=== PATIENT | male | born 1935 | race Caucasian/White ===

== ENCOUNTER 2020-09-05 12:47 | Inpatient (IN) | payer MEDICARE ==
[~2020-09-05] VITALS: Ht 165.1 cm; Wt 65.8 kg
[~2020-09-05 12:47] MED LIST: ASPI-1497 PO; CYAN50008 MT; METF-414 PO; MULT-1146 PO; [UNRECOGNIZED DRUG - CODE] MT
[2020-09-05] MEDS ORDERED: SODIUM CHLORIDE 0.9% 500 ML IV ONE (13:15)
[2020-09-05 14:01] LABS: CHLORIDE 99 mEq/L (98-107)
[2020-09-05 15:23] LABS: HEMOGLOBIN. 11.3 g/dL (14.0-18.0); MEAN CORPUSCULAR HEMOGLOBIN 31.5 pg (28.0-32.0); MEAN CORPUSCULAR VOLUME 89.1 fL (80.0-94.0); MEAN PLATELET VOLUME 7.2 fl (7.4-10.4); PLATELET 225 x1000/uL (130-400); RED BLOOD CELL COUNT 3.59 mill/uL (4.7-6.1); RED CELL DISTRIBUTION WIDTH 13.4 % (11.6-14.6)
[2020-09-05 17:09] LABS: CLARITY URINE CLEAR (CLEAR); COLOR URINE YELLOW (YELLOW); KETONES URINE 1+ (NEGATIVE); LEUKOCYTE ESTERASE URINE NEGATIVE (NEGATIVE); NITRITE URINE NEGATIVE (NEGATIVE); OCCULT BLOOD URINE 2+ (NEGATIVE); PROTEIN URINE 1+ (NEGATIVE); SPECIFIC GRAVITY URINE 1.023 (1.005-1.030)
[2020-09-05 17:25] LABS: PLATELET ESTIMATE NORMAL
[2020-09-05] MEDS ORDERED: SODIUM CHLORIDE 0.9% 1,800 ML IV ONE (21:45)
[2020-09-05] MEDS ORDERED: CEFTRIAXONE 1 G PREMIX 50 ML IV NR (22:00)
[2020-09-06] VITALS (7 sets, daily range): BP systolic 90–124; BP diastolic 43–67
[2020-09-06] MEDS ORDERED: DEXTROSE 50% WATER 50ML SYRINGE IV PRN (04:00)
[2020-09-06] MEDS ORDERED: BLOOD SUGAR DIAGNOSTIC STRIP TEST SCH (05:26)
[2020-09-06] MEDS: INSULIN LISPRO 100 UNITS/ML SUBCUT SCH ×4 (06:03→21:32)
[2020-09-06] MEDS: BLOOD SUGAR DIAGNOSTIC STRIP TEST SCH ×4 (06:03→21:16)
[2020-09-06] MEDS: METFORMIN HCL 500MG TABLET PO SCH ×2 (07:12→17:38)
[2020-09-06] MEDS ORDERED: LEVOFLOXACIN 250MG PREMIX 50 ML IV SCH (08:00)
[2020-09-06] MEDS: AMLODIPINE 10MG TABLET PO SCH (08:36)
[2020-09-06] MEDS: ACETAMINOPHEN 325MG TABLET PO PRN (08:37)
[2020-09-06] MEDS: ENOXAPARIN 40MG/0.4ML SYR SUBCUT SCH (08:37)
[2020-09-06] MEDS ORDERED: LEVOFLOXACIN 500MG PREMIX 100 ML IV SCH (09:00)
[2020-09-06] MEDS ORDERED: ONDANSETRON HCL 4MG/2ML INJ IV PRN (11:15)
[2020-09-06 11:29] LABS: BASOPHILS % 0.1 % (0.0-2.0); HEMATOCRIT. 33.2 % (42.0-52.0); HEMOGLOBIN. 11.7 g/dL (14.0-18.0); LYMPHOCYTES % 8.6 % (20.0-50.0); MEAN CORPUSCULAR HEMOGLOBIN 31.8 pg (28.0-32.0); MEAN CORPUSCULAR VOLUME 90.4 fL (80.0-94.0); MEAN PLATELET VOLUME 8.3 fl (7.4-10.4); MONOCYTES % 3.7 % (2.0-8.0); NEUTROPHILS % 87.6 % (40.0-76.0); PLATELET 210 x1000/uL (130-400); RED BLOOD CELL COUNT 3.67 mill/uL (4.7-6.1); RED CELL DISTRIBUTION WIDTH 13.6 % (11.6-14.6)
[2020-09-06] MEDS: CEFEPIME 1,000 MG in DEXTROSE 5% WATER 50 ML IV SCH ×2 (17:38→23:38)
[2020-09-07] VITALS: BP 119/59
[2020-09-07 04:00] VITALS: BP 126/64
[2020-09-07] MEDS: METFORMIN HCL 500MG TABLET PO SCH ×2 (07:03→17:31)
[2020-09-07] MEDS: BLOOD SUGAR DIAGNOSTIC STRIP TEST SCH ×4 (07:03→20:56)
[2020-09-07] MEDS: INSULIN LISPRO 100 UNITS/ML SUBCUT SCH ×4 (07:04→22:45)
[2020-09-07 07:51] LABS: BASOPHILS % 0.4 % (0.0-2.0); EOSINOPHILS % 1.2 % (0.0-5.0); HEMOGLOBIN. 11.1 g/dL (14.0-18.0); LYMPHOCYTES % 8.6 % (20.0-50.0); MEAN CORPUSCULAR HEMOGLOBIN 31.9 pg (28.0-32.0); MEAN CORPUSCULAR VOLUME 88.8 fL (80.0-94.0); MEAN PLATELET VOLUME 7.9 fl (7.4-10.4); MONOCYTES % 4.4 % (2.0-8.0); NEUTROPHILS % 85.4 % (40.0-76.0); PLATELET 208 x1000/uL (130-400); RED BLOOD CELL COUNT 3.49 mill/uL (4.7-6.1); RED CELL DISTRIBUTION WIDTH 13.3 % (11.6-14.6)
[2020-09-07 08:00] VITALS: BP 128/56
[2020-09-07 08:03] LABS: CHLORIDE 100 mEq/L (98-107)
[2020-09-07] MEDS: CEFEPIME 1,000 MG in DEXTROSE 5% WATER 50 ML IV SCH ×3 (08:43→23:10)
[2020-09-07] MEDS: AMLODIPINE 10MG TABLET PO SCH (08:43)
[2020-09-07] MEDS: ACETAMINOPHEN 325MG TABLET PO PRN (08:43)
[2020-09-07] MEDS: ENOXAPARIN 40MG/0.4ML SYR SUBCUT SCH (08:43)
[2020-09-07 12:00] VITALS: BP 110/54
[2020-09-07 16:00] VITALS: BP 126/60
[2020-09-07 20:00] VITALS: BP 115/60
[2020-09-08] VITALS: BP 135/66
[2020-09-08 04:00] VITALS: BP 123/57
[2020-09-08] MEDS: BLOOD SUGAR DIAGNOSTIC STRIP TEST SCH ×2 (06:28→11:40)
[2020-09-08] MEDS: INSULIN LISPRO 100 UNITS/ML SUBCUT SCH (06:35)
[2020-09-08] MEDS: METFORMIN HCL 500MG TABLET PO SCH (06:35)
[2020-09-08 08:00] VITALS: BP 120/55
[2020-09-08] MEDS: AMLODIPINE 10MG TABLET PO SCH (08:15)
[2020-09-08] MEDS: CEFEPIME 1,000 MG in DEXTROSE 5% WATER 50 ML IV SCH (08:16)
[2020-09-08] MEDS: ENOXAPARIN 40MG/0.4ML SYR SUBCUT SCH (08:16)
[2020-09-08] MEDS ORDERED: SULF1TAB48 MT (11:38)
[2020-09-08 11:39] VITALS: BP 122/53
[2020-09-08 12:00] VITALS: BP 122/53
== END 2020-09-08 14:05 | disposition home or self-care (01) | DRG 872 ==
LOC: ER 12:47 → 5WST 22:22 → ENRESERV 23:06
PROVIDERS: ADMIT Internal Medicine; ATTEND Internal Medicine
DX: A41.9 Sepsis, unspecified organism (principal); E87.1 Hypo-osmolality and hyponatremia; D64.9 Anemia, unspecified; E11.65 Type 2 diabetes mellitus with hyperglycemia; E86.0 Dehydration; I10 Essential (primary) hypertension; J44.9 Chronic obstructive pulmonary disease, unspecified; J40 Bronchitis, not specified as acute or chronic; R26.2 Difficulty in walking, not elsewhere classified
CPT/HCPCS: 36415; 71045; 80048; 80053; 80061; 81003; 82962; 83036; 83605; 83880; 84145; 84484; 85025; 93005; 97162; 99285; C1893; J0692; J0696; J1650; J1815; J1956; J7040; J7060

== ENCOUNTER 2023-11-06 20:21 | Inpatient (IN) | payer MEDICARE ==
[~2023-11-06] VITALS: Ht 167.6 cm; Wt 65.8 kg
[~2023-11-06 20:21] MED LIST changes: -CYAN50008 MT; +CYAN50009 MT; +SULF1TAB48 MT
[2023-11-06 20:25] VITALS: O2SAT 95
[2023-11-06] MEDS: PIPERACILLIN/TAZO 3.375G/50ML 50 ML IV ONE (20:57)
[2023-11-06] MEDS: SODIUM CHLORIDE 0.9% 1000ML BAG (SEPSIS BOLUS) IV ONE (20:57)
[2023-11-06 21:06] LABS: DIFFERENTIAL COMMENT 1; HEMATOCRIT. 39.6 % (42.0-52.0); MEAN CORPUSCULAR HEMOGLOBIN 30.2 pg (28.0-32.0); MEAN CORPUSCULAR HGB CONC 32.9 g/dL (31.0-37.0); MEAN CORPUSCULAR VOLUME 91.8 fL (80.0-94.0); MEAN PLATELET VOLUME 7.4 fl (7.4-10.4); PLATELET 273 x1000/uL (130-400); RED BLOOD CELL COUNT 4.31 mill/uL (4.7-6.1); RED CELL DISTRIBUTION WIDTH 13.8 % (11.6-14.6); WHITE BLOOD COUNT 17.7 x1000/uL (4.5-11.0)
[2023-11-06 21:14] LABS: CHLORIDE 106 mEq/L (98-107); POTASSIUM 4.5 mEq/L (3.5-5.1); SODIUM 139 mEq/L (136-145)
[2023-11-06 21:15] LABS: CALCIUM 8.9 mg/dL (8.7-10.4); CARBON DIOXIDE 25 mEq/L (21-32)
[2023-11-06 21:16] LABS: PROTHROMBIN TIME 11.1 sec (9.6-11.0)
[2023-11-06 21:16] LABS: BG BASE EXCESS -2.4 mmol/L (-2.0-2.0); BG CARBOXYHEMOGLOBIN 0.6 % (0.5-1.5); BG FRACTION INSPIRED OXYGEN 100; BG HCO3 ACT 23.6 mmol/L (22.0-26.0); BG METHEMOGLOBIN 0.3 % (0.0-1.5); BG OXYHEMOGLOBIN 99.1 % (94.0-97.0); BG PCO2 45.5 mmHg (35.0-45.0); BG PH 7.332 (7.350-7.450); BG PO2 341.7 mmHg (75.0-100.0); BG SAMPLE SITE RIGHT RADIAL; BG TOTAL HEMOGLOBIN 11.9 g/dL (12.0-18.0); BG VENT MODE MASK - NRB
[2023-11-06 21:20] LABS: CREATININE 1.6 mg/dL (0.6-1.3); GLUCOSE 114 mg/dL (70-105); UREA NITROGEN BLOOD 33 mg/dL (9-23)
[2023-11-06 21:22] LABS: ALANINE AMINOTRANSFERASE 11 IU/L (10-49); ALBUMIN 4.2 g/dL (3.2-4.8); ASPARTATE AMINOTRANSFERASE 23 IU/L (<34); BILIRUBIN DIRECT 0.3 mg/dL (<=3.0); BILIRUBIN TOTAL 0.6 mg/dL (0.1-1.0); CREATINE KINASE 251 IU/L (46-171); PROTEIN TOTAL 6.8 g/dL (6.0-8.3)
[2023-11-06 21:26] LABS: ETHANOL BLOOD < 10 mg/dL (<10); TROPONIN I HIGH SENSITIVITY 512 ng/L (3.0-53)
[2023-11-06 21:37] LABS: PLATELET ESTIMATE NORMAL
[2023-11-06] MEDS: VANCOMYCIN 1G PREMIX 200 ML IV ONE (21:42)
[2023-11-06] MEDS: ASPIRIN 300MG SUPP PR ONE (22:18)
[2023-11-06] MEDS: SODIUM CHLORIDE 0.9% 1,000 ML IV ONE (22:41)
[2023-11-06 23:09] LABS: TROPONIN I HIGH SENSITIVITY 513 ng/L (3.0-53)
[2023-11-07] VITALS (9 sets, daily range): BP systolic 98–123; BP diastolic 45–65; PULSE 66–97; RESP 8–16; TEMP 35.94732–36.7516; O2SAT 97–100
[2023-11-07 04:15] LABS: CLARITY URINE CLEAR (CLEAR); COLOR URINE YELLOW (YELLOW); GLUCOSE URINE NEGATIVE (NEGATIVE); KETONES URINE NEGATIVE (NEGATIVE); LEUKOCYTE ESTERASE URINE NEGATIVE (NEGATIVE); NITRITE URINE NEGATIVE (NEGATIVE); OCCULT BLOOD URINE NEGATIVE (NEGATIVE); PROTEIN URINE TRACE (NEGATIVE); SPECIFIC GRAVITY URINE 1.027 (1.005-1.030)
[2023-11-07 04:33] LABS: *AMPHETAMINES SCREEN URINE NEGATIVE (NEGATIVE); *BARBITURATES SCREEN URINE NEGATIVE (NEGATIVE); *BENZODIAZEPINES SCREEN URINE PRESUMPTIVE POSITIVE (NEGATIVE); *COCAINE SCREEN URINE NEGATIVE (NEGATIVE); CANNABINOID URINE SCREEN NEGATIVE (NEGATIVE); ECSTASY MDMA SCREEN URINE NEGATIVE (NEGATIVE); METHADONE URINE SCREEN NEGATIVE (NEGATIVE); OPIATES URINE SCREEN PRESUMPTIVE POSITIVE (NEGATIVE); PHENCYCLIDINE URINE SCREEN NEGATIVE (NEGATIVE)
[2023-11-07] MEDS ORDERED: NITROGLYCERIN 0.4MG TABLET SL SL PRN (06:00)
[2023-11-07] MEDS ORDERED: DOCUSATE SODIUM 100MG CAPSULE PO PRN (06:00)
[2023-11-07] MEDS ORDERED: GUAIFENESIN 200MG/10ML SUGAR FREE UDC PO PRN (06:00)
[2023-11-07] MEDS ORDERED: ACETAMINOPHEN 325MG TABLET PO PRN ×2 (06:00)
[2023-11-07] MEDS ORDERED: ONDANSETRON HCL 4MG/2ML INJ IV PRN (06:00)
[2023-11-07] MEDS ORDERED: MAGNESIUM/ALUMINUM HYDROXIDE/SIMETHICONE 30ML UDC PO PRN (06:00)
[2023-11-07] MEDS ORDERED: CLONIDINE 0.1MG TABLET PO PRN (06:00)
[2023-11-07] MEDS ORDERED: ZOLPIDEM TARTRATE 5MG TABLET PO PRN (06:00)
[2023-11-07] MEDS ORDERED: IPRATROPIUM/ALBUTEROL 0.5-3(2.5)MG/3ML NEB NEB PRN (06:00)
[2023-11-07] MEDS ORDERED: DEXTROSE 50% WATER 50ML SYRINGE IV PRN (06:15)
[2023-11-07 06:33] LABS: RBC URINE 0-2 /hpf (0-2); SQUAMOUS EPITHELIAL CELL URINE NONE SEEN /lpf (RARE/1+); URIC ACID CRYSTALS URINE 1+ /lpf; WBC URINE 0-2 /hpf (0-2)
[2023-11-07 06:41] LABS: BACTERIA URINE NONE SEEN
[2023-11-07] MEDS: ENOXAPARIN 60MG/0.6ML SYR SUBCUT SCH (06:45)
[2023-11-07] MEDS: BLOOD SUGAR DIAGNOSTIC STRIP TEST SCH (07:30)
[2023-11-07] MEDS: INSULIN LISPRO 100 UNITS/ML SUBCUT SCH (08:00)
[2023-11-07] MEDS: PIPERACILLIN/TAZO 3.375G/50ML 50 ML IV SCH (08:54)
[2023-11-07] MEDS: FAMOTIDINE 20MG TABLET PO SCH (08:55)
[2023-11-07] MEDS: ZINC SULFATE 220 MG ( 50 ) CAPSULE PO SCH (08:55)
[2023-11-07] MEDS: ASCORBIC ACID 500 MG TABLET PO SCH (08:55)
[2023-11-07] MEDS ORDERED: PIPERACILLIN/TAZO 3.375G/50ML 50 ML IV SCH (09:00)
[2023-11-07 09:11] LABS: IRON 14 ug/dL (65-175)
[2023-11-07 09:12] LABS: CREATINE KINASE MB FRACTION 6.9 ng/mL (0.5-3.6); TRIGLYCERIDE 46 mg/dL (0-150)
[2023-11-07 09:13] LABS: LACTIC ACID 2.5 mmol/L (0.4-2.0); LDL CHOLESTEROL 32 mg/dL (5-100)
[2023-11-07 09:14] LABS: CHOLESTEROL 81 mg/dL (<200); CREATINE KINASE 291 IU/L (46-171); HDL CHOLESTEROL 35 mg/dL (>55); TOTAL IRON BINDING CAPACITY 548 ug/dl (250-425)
[2023-11-07 09:16] LABS: THYROID STIMULATING HORMONE 0.81 uIU/mL (0.55-4.78)
[2023-11-07 09:44] LABS: TROPONIN I HIGH SENSITIVITY 344 ng/L (3.0-53)
[2023-11-07 10:21] LABS: T4 FREE 1.02 ng/dL (0.89-1.76)
[2023-11-07] MEDS ORDERED: CETI10TA11 MT (11:00)
[2023-11-07] MEDS ORDERED: NAPR220C61 MT (11:00)
[2023-11-07] MEDS ORDERED: MECL-299 MT (11:00)
[2023-11-07 12:11] LABS: FOLIC ACID (FOLATE) SERUM 15.29 ng/mL (>5.38)
[2023-11-07 12:12] LABS: VITAMIN B12 SERUM 757 pg/mL (211-911)
[2023-11-07] MEDS: LACTATED RINGERS 1,000 ML IV ONE (13:23)
[2023-11-07 17:08] LABS: CREATINE KINASE MB FRACTION 6.8 ng/mL (0.5-3.6)
[2023-11-07] MEDS: VANCOMYCIN 750MG/150ML (BAXTER) IV SCH (20:34)
[2023-11-08] VITALS (9 sets, daily range): BP systolic 94–120; BP diastolic 46–60; PULSE 90–113; RESP 9–20; TEMP 35.94732–37.39188; O2SAT 89–100
[2023-11-08 06:19] LABS: CHLORIDE 109 mEq/L (98-107); POTASSIUM 4.7 mEq/L (3.5-5.1); SODIUM 140 mEq/L (136-145)
[2023-11-08 06:22] LABS: CALCIUM 8.6 mg/dL (8.7-10.4); CARBON DIOXIDE 23 mEq/L (21-32)
[2023-11-08 06:27] LABS: CREATININE 1.2 mg/dL (0.6-1.3); GLUCOSE 123 mg/dL (70-105); UREA NITROGEN BLOOD 28 mg/dL (9-23)
[2023-11-08 06:29] LABS: ALANINE AMINOTRANSFERASE 24 IU/L (10-49); ALBUMIN 3.7 g/dL (3.2-4.8); ASPARTATE AMINOTRANSFERASE 26 IU/L (<34); BILIRUBIN TOTAL 0.3 mg/dL (0.1-1.0); PHOSPHORUS 3.1 mg/dL (2.5-4.9); PROTEIN TOTAL 6.1 g/dL (6.0-8.3)
[2023-11-08 10:23] LABS: HEMATOCRIT. 34.5 % (42.0-52.0); MEAN CORPUSCULAR HEMOGLOBIN 29.3 pg (28.0-32.0); MEAN CORPUSCULAR HGB CONC 31.9 g/dL (31.0-37.0); MEAN PLATELET VOLUME 7.9 fl (7.4-10.4); PLATELET 211 x1000/uL (130-400); RED BLOOD CELL COUNT 3.75 mill/uL (4.7-6.1); RED CELL DISTRIBUTION WIDTH 14.2 % (11.6-14.6); WHITE BLOOD COUNT 15.4 x1000/uL (4.5-11.0)
[2023-11-08 10:26] LABS: DIFFERENTIAL COMMENT 1
[2023-11-08] MEDS: MAGNESIUM 4 G PREMIX 100 ML IV NR (14:00)
[2023-11-08 16:09] LABS: PLATELET ESTIMATE NORMAL
[2023-11-08] MEDS: VANCOMYCIN 1.5GM/250ML 250 ML IV SCH (20:44)
[2023-11-09] VITALS: BP 108/61; PULSE 100; RESP 18; TEMP 37.16964; O2SAT 95
[2023-11-09 04:00] VITALS: BP 120/57; PULSE 108; RESP 16; TEMP 37.2252; O2SAT 96
[2023-11-09] MEDS: ENOXAPARIN 60MG/0.6ML SYR SUBCUT SCH (05:48)
[2023-11-09] MEDS ORDERED: ENOXAPARIN 60MG/0.6ML SYR SUBCUT SCH (06:30)
[2023-11-09 08:00] VITALS: BP 108/55; PULSE 100; RESP 17; TEMP 36.9474; TEMP 36.94740; O2SAT 98
[2023-11-09 12:00] VITALS: BP 118/54; PULSE 100; RESP 24; O2SAT 94
[2023-11-09 16:00] VITALS: BP 127/58; PULSE 128; RESP 26; O2SAT 93
[2023-11-09 16:27] LABS: BG BASE EXCESS -2.6 mmol/L (-2.0-3.0); BG CARBOXYHEMOGLOBIN 0.7 % (0.5-1.5); BG DEOXYHEMOGLOBIN 21.2 % (0.0-5.0); BG HCO3 ACT 27.2 mmol/L (21.0-28.0); BG METHEMOGLOBIN 0.3 % (0.5-1.5); BG OXYGEN SATURATION 78.6 % (94.0-98.0); BG OXYHEMOGLOBIN 77.8 % (94.0-98.0); BG PCO2 72.5 mmHg (35.0-48.0); BG PH 7.192 (7.350-7.450); BG PO2 45.2 mmHg (83.0-108.0); BG SAMPLE SITE RIGHT RADIAL; BG TOTAL HEMOGLOBIN 13.2 g/dL (13.5-17.5); BG VENT MODE MASK - NRB
== END 2023-11-09 23:52 | DRG 917 ==
LOC: ER 20:25 → EDBEDREQTM 11-07 → EDBEDREQSVC 11-07 01:08 → 5EST 11-07 03:03
PROVIDERS: ADMIT Internal Medicine; ATTEND Internal Medicine
DX: T50.991A Poisoning by other drugs, medicaments and biological substances, accidental (unintentional), initial encounter (principal); A41.9 Sepsis, unspecified organism; G92.8 Other toxic encephalopathy; J96.01 Acute respiratory failure with hypoxia; N17.0 Acute kidney failure with tubular necrosis; J96.02 Acute respiratory failure with hypercapnia; I21.A1 Myocardial infarction type 2; I50.41 Acute combined systolic (congestive) and diastolic (congestive) heart failure; J69.0 Pneumonitis due to inhalation of food and vomit; M62.82 Rhabdomyolysis; N39.0 Urinary tract infection, site not specified; Z66 Do not resuscitate; D63.8 Anemia in other chronic diseases classified elsewhere; E11.9 Type 2 diabetes mellitus without complications; J44.9 Chronic obstructive pulmonary disease, unspecified; S80.212A Abrasion, left knee, initial encounter; X58.XXXA Exposure to other specified factors, initial encounter; Y93.89 Activity, other specified; Y92.89 Other specified places as the place of occurrence of the external cause; Y99.8 Other external cause status; Z86.73 Personal history of transient ischemic attack (TIA), and cerebral infarction without residual deficits
CPT/HCPCS: 36415; 36600; 70551; 71045; 80048; 80053; 80061; 80076; 80202; 80305; 80320; 81003; 82375; 82550; 82553; 82607; 82746; 82805; 82962; 83036; 83540; 83550; 83605; 83735; 83880; 84100; 84145; 84439; 84443; 84484; 85025; 86850; 86900; 93005; 93970; 99291; J1650; J1815; J2543; J3370; J3475; J7030; G0480